=== PATIENT | male | born 1950 | race African-American/Black ===

== ENCOUNTER 2022-09-22 18:31 | Inpatient (IN) | payer OTHER ==
[2022-09-22 20:54] VITALS: BMI 25.1
[2022-09-22] MEDS ORDERED: NALOXONE HCL 0.4 MG/ML VIAL IM PRN (23:56)
[2022-09-22] MEDS ORDERED: LOPERAMIDE HCL 2 MG CAPSULE PO PRN (23:56)
[2022-09-22] MEDS ORDERED: DICYCLOMINE HCL 10 MG CAPSULE PO PRN (23:56)
[2022-09-22] MEDS ORDERED: BENZONATATE 200 MG CAPSULE PO PRN (23:56)
[2022-09-22] MEDS ORDERED: ACETAMINOPHEN 325 MG TABLET (FP) PO PRN (23:56)
[2022-09-22] MEDS ORDERED: BENZOCAINE/MENTHOL (CHLORASEPTIC ) LOZENGE MM PRN (23:56)
[2022-09-22] MEDS ORDERED: POLYETHYLENE GLYCOL (HEALTHYLAX) 3350 17 GM PACKET PO PRN (23:56)
[2022-09-22] MEDS ORDERED: NALOXONE HCL (KLOXXADO) 8 MG SPRAY NS PRN (23:56)
[2022-09-22] MEDS ORDERED: P-EPHED 60MG/TRIPROLIDI 2.5MG TABLET PO PRN (23:56)
[2022-09-22] MEDS ORDERED: MAGNESIUM HYDROX 2400MG/30ML ORAL SUSPENSION 30 ML CUP PO PRN (23:56)
[2022-09-22] MEDS ORDERED: guaiFENesin 600 MG TABLET.ER (FP) PO PRN (23:56)
[2022-09-22] MEDS ORDERED: ONDANSETRON *ODT* 4 MG TABLET SL PRN (23:56)
[2022-09-22] MEDS ORDERED: MAG HYDROX/AL HYDROX/SIMETH 30 ML UNIT-DOSE CUP PO PRN (23:56)
[2022-09-22] MEDS ORDERED: NICOTINE 7 MG/24 HOURS TOPICAL PATCH TD PRN (23:56)
[2022-09-23] MEDS: PRENATAL VITAMINS W/ FOLIC ACID TABLET (FP) PO SCH (10:18)
[2022-09-23] MEDS ORDERED: diazePAM 5 MG TABLET PO PRN ×2 (10:20→10:58)
[2022-09-23] MEDS ORDERED: MONTELUKAST NA 10 MG TABLET PO PRN (10:42)
[2022-09-23] MEDS: ASPIRIN 81 MG CHEWABLE TABLETS PO SCH (11:16)
[2022-09-23] MEDS: CLOPIDOGREL BISULFATE 75 MG TABLET (FP) PO SCH (11:16)
[2022-09-23] MEDS: CARVEDILOL 6.25 MG TABLET (FP) PO SCH ×2 (11:17→22:52)
[2022-09-23] MEDS: diazePAM 5 MG TABLET PO SCH ×3 (11:17→22:53)
[2022-09-23 11:22] LABS: POTASSIUM 4.2 mmol/L (3.5-5.1)
[2022-09-23 11:27] LABS: ALBUMIN 3.5 g/dl (3.4-5.0); BLOOD UREA NITROGEN 19.7 mg/dL (7-18); CALCIUM 8.6 mg/dL (8.5-10.1); HEMATOCRIT 40.4 % (35.4-49); HEMOGLOBIN 13.9 GM/dL (11.7-16.9); MCH 29.5 pg (25.7-33.7); MCHC 34.3 g/dl (32.0-35.9); MEAN CELL VOLUME 85.9 fl (80-96); MEAN PLT VOLUME 7.6 fl (7.5-11.1); PLATELET COUNT 183 10^3/uL (134-434); RBC 4.71 M/mm3 (4.00-5.60); RDW 15.7 % (11.9-15.9); WHITE BLOOD COUNT 5.2 K/mm3 (4.0-10.0)
[2022-09-23 11:29] LABS: BILIRUBIN,TOTAL 0.4 mg/dL (0.2-1)
[2022-09-23 11:30] LABS: CREATININE 1.2 mg/dL (0.55-1.3)
[2022-09-23] MEDS: SACUBITRIL/VALSARTAN 24 MG-26 MG TABLET PO SCH ×2 (11:36→22:52)
[2022-09-23] MEDS: SPIRONOLACTONE 25 MG TABLET PO SCH (11:40)
[2022-09-23] MEDS: EMPAGLIFLOZIN (NF) 10 MG TABLET PO SCH (13:42)
[2022-09-23] MEDS: THIAMINE HCL 100 MG TABLET (FP) PO SCH (22:52)
[2022-09-23] MEDS: ATORVASTATIN CA 80 MG TABLET (FP) PO SCH (22:52)
[2022-09-23] MEDS: MELATONIN 5 MG TABLETS PO PRN (22:53)
[2022-09-24] MEDS: diazePAM 5 MG TABLET PO SCH ×4 (05:47→22:15)
[2022-09-24] MEDS: CARVEDILOL 6.25 MG TABLET (FP) PO SCH ×2 (10:38→22:59)
[2022-09-24] MEDS: ASPIRIN 81 MG CHEWABLE TABLETS PO SCH (10:38)
[2022-09-24] MEDS: CLOPIDOGREL BISULFATE 75 MG TABLET (FP) PO SCH (10:38)
[2022-09-24] MEDS: PRENATAL VITAMINS W/ FOLIC ACID TABLET (FP) PO SCH (10:38)
[2022-09-24] MEDS: SACUBITRIL/VALSARTAN 24 MG-26 MG TABLET PO SCH ×2 (10:39→22:15)
[2022-09-24] MEDS: EMPAGLIFLOZIN (NF) 10 MG TABLET PO SCH (10:40)
[2022-09-24] MEDS: SPIRONOLACTONE 25 MG TABLET PO SCH (11:00)
[2022-09-24] MEDS: ATORVASTATIN CA 80 MG TABLET (FP) PO SCH (22:15)
[2022-09-24] MEDS: THIAMINE HCL 100 MG TABLET (FP) PO SCH (22:15)
[2022-09-24] MEDS: MELATONIN 5 MG TABLETS PO PRN (22:16)
[2022-09-25] MEDS: diazePAM 5 MG TABLET PO SCH ×2 (05:44→13:39)
[2022-09-25] MEDS: SACUBITRIL/VALSARTAN 24 MG-26 MG TABLET PO SCH (10:32)
[2022-09-25] MEDS: EMPAGLIFLOZIN (NF) 10 MG TABLET PO SCH (10:32)
[2022-09-25] MEDS: ASPIRIN 81 MG CHEWABLE TABLETS PO SCH (10:32)
[2022-09-25] MEDS: CLOPIDOGREL BISULFATE 75 MG TABLET (FP) PO SCH (10:32)
[2022-09-25] MEDS: SPIRONOLACTONE 25 MG TABLET PO SCH (10:32)
[2022-09-25] MEDS: CARVEDILOL 6.25 MG TABLET (FP) PO SCH (10:32)
[2022-09-25] MEDS: PRENATAL VITAMINS W/ FOLIC ACID TABLET (FP) PO SCH (10:33)
[2022-09-25 14:12] VITALS: TEMP 97.3
[2022-09-25 15:41] VITALS: BP 106/51; PULSE 63; RESP 14
[2022-09-26] MEDS ORDERED: diazePAM 5 MG TABLET PO SCH (06:00)
[2022-09-27] MEDS ORDERED: diazePAM 5 MG TABLET PO ONE (06:00)
== END 2022-09-25 16:40 | disposition left against medical advice (07) | DRG 894 ==
LOC: YASAS 18:31 → Y3N 09-23 02:09
PROVIDERS: ADMIT Allergy & Immunology; ATTEND Surgery
PROC: HZ2ZZZZ Detoxification Services for Substance Abuse Treatment (ICD-10-PCS; principal; 2022-09-23)
DX: F10.230 Alcohol dependence with withdrawal, uncomplicated (principal); F14.20 Cocaine dependence, uncomplicated; F12.20 Cannabis dependence, uncomplicated; F17.210 Nicotine dependence, cigarettes, uncomplicated; F20.9 Schizophrenia, unspecified; I25.10 Atherosclerotic heart disease of native coronary artery without angina pectoris; I11.0 Hypertensive heart disease with heart failure; I50.9 Heart failure, unspecified; I25.2 Old myocardial infarction; Z95.5 Presence of coronary angioplasty implant and graft; R73.03 Prediabetes; Z86.73 Personal history of transient ischemic attack (TIA), and cerebral infarction without residual deficits; Z86.19 Personal history of other infectious and parasitic diseases; Z96.653 Presence of artificial knee joint, bilateral
CPT/HCPCS: 36415; 80053; 85027; 86780; 93005; 93010; C9803-CS; Q0162; U0003; U0005